=== PATIENT | male | born 1965 | race Two or more races ===

== ENCOUNTER 2019-03-04 16:47 | Emergency (ER) | payer OTHER, BC ==
[~2019-03-04] VITALS: Ht 177.8 cm; Wt 86.2 kg
[2019-03-04 17:13] VITALS: BP 153/101
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
[2019-03-04] MEDS ORDERED: DICL50TA2 PO (18:04)
[2019-03-04] MEDS ORDERED: METH4TAB2 PO (18:04)
[2019-03-04] MEDS ORDERED: CYCL10TA2 PO (18:04)
== END 2019-03-04 18:14 | disposition home or self-care (01) ==
LOC: ER 16:47
DX: S16.1XXA Strain of muscle, fascia and tendon at neck level, initial encounter (principal); M54.2 Cervicalgia; V49.40XA Driver injured in collision with unspecified motor vehicles in traffic accident, initial encounter; Y93.89 Activity, other specified; Y92.89 Other specified places as the place of occurrence of the external cause; Y99.8 Other external cause status
CPT/HCPCS: 70450; 72125; 99284

== ENCOUNTER 2019-10-30 17:07 | Emergency (ER) | payer BC, OTHER ==
[~2019-10-30] VITALS: Ht 177.8 cm; Wt 85.5 kg
[~2019-10-30 17:07] MED LIST: CYCL10TA2 PO; DICL50TA2 PO; METH4TAB2 PO
--- NOTE | 2019-10-30 18:32 | PHYS DOC ---
Past Medical History Past Medical History: No Pertinent History Past Surgical History: No Surgical History Smoking Status: Current Every Day Smoker Alcohol Use: Occasionally Drug Use: None General Adult EDM: Chief Complaint: FEVER HPI: HPI: Patient is a 54 year old female presents with the chief complaint of headache, fever, cough, and body aches. Patient states onset of symptoms on October 24. Symptoms progressively worse since onset. Temp on arrival 103.1. Cough is doubt sputum production. Patient's oxygen saturation on room air is 95%. Patient also complains of some dry heaving and some diarrhea, Review of Systems: Review of Systems: Constitutional: Positive fevers Eyes: Denies change in visual acuity. [] HENT: Denies nasal congestion or sore throat. [] Respiratory: Onset of cough Cardiovascular: Denies chest pain or edema. [] GI: Denies abdominal pain, nausea positive vomiting positive diarrhea : Denies dysuria. [] Musculoskeletal: Denies back pain or joint pain. [Positive muscle aches] Integument: Denies rash. [] Neurologic: Denies headache, focal weakness or sensory changes. [] Endocrine: Denies polyuria or polydipsia. [] Lymphatic: Denies swollen glands. [] Psychiatric: Denies depression or anxiety. [] Heart Score: Risk Factors: Risk Factors: DM, Current or recent (<one month) smoker, HTN, HLP, family history of CAD, obesity. Risk Scores: Score 0 - 3: 2.5% MACE over next 6 weeks - Discharge Home Score 4 - 6: 20.3% MACE over next 6 weeks - Admit for Clinical Observation Score 7 - 10: 72.7% MACE over next 6 weeks - Early Invasive Strategies Allergies: Allergies: Allergies Coded Allergies Type Severity Reaction Last Updated Verified No Known Drug Allergies 03/04/19 No Physical Exam: PE: Constitutional: Well developed, well nourished, no acute distress, non-toxic appearance. [] HENT: Normocephalic, atraumatic, bilateral external ears normal, oropharynx moist, no oral exudates, nose normal. [] Eyes: PERRLA, EOMI, conjunctiva normal, no discharge. [] Neck: Normal range of motion, no tenderness, supple, no stridor. [] Cardiovascular:Heart rate regular rhythm, no murmur [] Lungs & Thorax: Bilateral breath sounds clear to auscultation [] Abdomen: Bowel sounds normal, soft, no tenderness, no masses, no pulsatile masses. [] Skin: Warm, dry, no erythema, no rash. [] Back: No tenderness, no CVA tenderness. [] Extremities: No tenderness, no cyanosis, no clubbing, ROM intact, no edema. [] Neurologic: Alert and oriented X 3, normal motor function, normal sensory function, no focal deficits noted. [] Psychologic: Affect normal, judgement normal, mood normal. [] Current Patient Data: Vital Signs: Vital Signs Date Time Temp Pulse Resp B/P (MAP) Pulse Ox O2 Delivery O2 Flow Rate FiO2 10/30/19 17:13 103.1 99 16 148/75 (99) 95 Room Air 103.1 EKG: EKG: [] Radiology/Procedures: Radiology/Procedures: [] Impression: AP chest. HISTORY: Cough AP view was taken of the chest. There is a left lower lobe infiltrate suggesting pneumonia. Heart is normal in size. Right lung is clear. There is no effusion. IMPRESSION: 1. Left lower lobe infiltrate. Course & Med Decision Making: Course & Med Decision Making Pertinent Labs and Imaging studies reviewed. (See chart for details) []AP chest. Patient was evaluated for chief complaint. Work-up consisted of laboratory analysis and radiologic imaging. Results reviewed and discussed with patient via picking machine operator helper. Patient chest x-ray left lower lobe infiltrate. Patient was treated with Rocephin and Zithromax in the emergency department. Patient will be discharged home with prescription Zithromax and advised to take Tylenol and ibuprofen alternating every 3 hours as needed for fevers. Patient also instructed to return to the ER if his symptoms persist get worse or any new concerning symptoms arise. Patient is oxygen saturation on room air 96%. Patient was febrile on arrival given Tylenol for his fever. Patient without any episodes of vomiting he was able to tolerate p.o. prior to discharge. Patient given instructions for COVID-19 instructed to quarantine 14 days until COVID-19 results return. [place] Disclaimer: Lindsay Disclaimer: This electronic medical record was generated, in whole or in part, using a voice recognition dictation system. Departure Departure Impression: Primary Impression: Pneumonia Additional Impression: Person under investigation for COVID-19 Disposition: HOME, SELF-CARE Condition: STABLE Referrals: NO PCP (PCP) Patient Instructions: Pneumonia, Adult Scripts Azithromycin (ZITHROMAX) 250 Mg Tablet 1 PKG PO UD, #6 TAB Prov: BOSSMAN BEDOLLA DO 10/30/19 Justicifation of Admission Dx: Justifications for Admission: Justification of Admission Dx: N/A BOSSMAN BEDOLLA DO Oct 30, 2019 18:31
[2019-10-30 18:40] LABS: BASO % 0 % (0-3); EOS % 0 % (0-3); HEMATOCRIT 41.6 % (39.0-53.0); HEMOGLOBIN 14.9 g/dL (13.0-17.5); LYMPH # 0.4 x10^3/uL (1.0-4.8); LYMPH % 5 % (24-48); MEAN CORPUSCULAR HEMOGLOBIN 31 pg (25-35); MEAN CORPUSCULAR HGB CONC 36 g/dL (31-37); MEAN CORPUSCULAR VOLUME 87 fL (79-100); MONO # 0.5 x10^3/uL (0.0-1.1); MONO % 6 % (0-9); NEUT # 7.6 x10^3/uL (1.8-7.7); NEUT % 89 % (31-73); PLATELET COUNT 211 x10^3/uL (140-400); RED CELL DISTRIBUTION WIDTH 12.9 % (11.5-14.5); WHITE BLOOD COUNT 8.5 x10^3/uL (4.0-11.0)
[2019-10-30] MEDS ORDERED: ACETAMINOPHEN 325 MG TABLET. PO ONE (18:45)
[2019-10-30 18:47] LABS: CALCIUM 8.4 mg/dL (8.5-10.1); CREATININE 1.3 mg/dL (0.7-1.3); GFR 57.3; POTASSIUM 3.3 mmol/L (3.5-5.1)
[2019-10-30 18:53] LABS: ALBUMIN 3.1 g/dL (3.4-5.0); ALBUMIN/GLOBULIN RATIO 0.6 (1.0-1.7); TOTAL PROTEIN 7.9 g/dL (6.4-8.2)
--- NOTE | 2019-10-30 19:03 | RAD ---
AP chest. HISTORY: Cough AP view was taken of the chest. There is a left lower lobe infiltrate suggesting pneumonia. Heart is normal in size. Right lung is clear. There is no effusion. IMPRESSION: 1. Left lower lobe infiltrate. Electronically signed by: Gabe Slater MD (10/30/2019 6:59 PM) [facility]
[2019-10-30 19:09] LABS: % BANDS 31 % (0-9); % LYMPHS 6 % (24-48); % MONOS 4 % (0-10); % SEGS 59 % (35-66)
[2019-10-30 19:10] LABS: PLT ESTIMATE ADEQUATE (ADEQUATE)
[2019-10-30] MEDS ORDERED: cefTRIAXone IV Push 1 GM VIAL. IVP ONE (19:15)
[2019-10-30] MEDS ORDERED: AZITHRMYCN 500MG IVPB FOR OMNI 250 ML IV ONE (19:15)
[2019-10-30] MEDS ORDERED: AZIT250T PO (19:59)
[2019-10-30 21:49] VITALS: BP 161/76
== END 2019-10-30 22:15 | disposition home or self-care (01) ==
LOC: ER 17:07
DX: J18.9 Pneumonia, unspecified organism (principal); Z20.828 Contact with and (suspected) exposure to other viral communicable diseases; F17.200 Nicotine dependence, unspecified, uncomplicated
CPT/HCPCS: 36415; 71045; 80053; 85007; 85025; 96365; 96366; 96375; 99285; J0456; J0696; U0003